=== PATIENT | female | born 1985 | race Caucasian/White ===

== ENCOUNTER 2025-02-27 16:13 | Emergency (ER) | payer OTHER, SELFPAY ==
[2025-02-27 16:17] VITALS: BP 144/103
[2025-02-27 16:45] LABS: Urine Character Clear (Clear)
[2025-02-27 17:02] LABS: Urine Red Blood Cell 0-2 /HPF (0-2); Urine Squamous Cell >30 /LPF (Few)
[2025-02-27 18:35] VITALS: BMI 46.0
[2025-02-27 18:37] VITALS: BP 154/95
[2025-02-27 19:40] LABS: Hematocrit 38.6 % (37.0-47.0); Hemoglobin 13.3 g/dL (12.0-16.0); Mean Corp Hgb Conc. 34.5 g/dL (33.0-37.0); Mean Corpuscular Volume 87.3 fL (81.0-99.0); Nucleated Red Blood Cells % 0 %; Platelet Count 260 10^3/uL (130-400); Red Cell Dist. Width 12.6 % (11.5-14.5)
[2025-02-27 20:01] LABS: Blood Urea Nitrogen 9 mg/dl (7-17); Calcium 9.0 mg/dl (8.4-10.2); Carbon Dioxide 18 mmol/L (22-30); Chloride 109 mmol/L (98-107); Estimated Creatinine Clearance > 125 ml/min; Glucose 94 mg/dl (70-99); Sodium 139 mmol/L (135-145); eGFR > 60.00
[2025-02-27 21:10] VITALS: BP 152/105
--- NOTE | 2025-02-27 23:54 | ED.GENMED ---
History of Present Illness
General
Chief Complaint: Flank Pain
Source: patient
Exam Limitations: none
Time Seen by Provider: 02/27/25 18:11
Nursing documentation reviewed up to this point in time: agreed with
History of Present Illness
History of Present Illness:
Patient to ED [facility] complaint of bilateral flank pain. Symptoms started today. She states she was placed on Macrobid 3 days ago for UTI. UTI symptoms improved, now with flank pain. Denies fever/chills.
Past History
Past History
ED Past Medical History: Other (Pyelonephritis)
ED Past Surgical History: and Other (Adkins teeth)
Patient has exhibited threatening behavior?: No
Social History
Tobacco: Non-smoker
Alcohol: Occasional
Drug: None
Personal:
Living: with family
Employment: Employed
Review of Systems
Review of Systems
Allergies reviewed?: Yes
All Other Systems: ROS reviewed and negative except as documented in HPI and ROS
Constitutional: Reports no symptoms
EENT: Reports no symptoms
Respiratory: Reports no symptoms
Cardiac: Reports no symptoms
ABD/GI: Reports no symptoms
: Reports flank pain (bilateral)
Musculoskeletal: Reports no symptoms
Skin: Reports no symptoms
Neurological: Reports no symptoms
Psychiatric: Reports no symptoms
Phy Exam
General Physical Exam
General Presentation: well appearing and no apparent distress
General age: appears stated age
General Skin: warm and dry
General Habitus: normal
General Mental: alert
Cardiovascular Exam
Cardiovascular Exam: regular rate/rhythm and no edema
Gastrointestinal Exam
Gastrointestinal Exam: normal bowel sounds, non tender, soft, no organomegaly, non distended and no cva tenderness
Musculoskeletal Exam
Musculoskeletal Exam: neuro vasc intact and other (bilateral middle back pain. Pain is reproducible.)
Skin Exam
Skin Exam: normal color, warm/dry and no rash
Psychiatric Exam
Psychiatric Exam: normal mood/affect
Course
Orders/Labs/Results
Orders:
Orders
02/27/25 16:27
Urine Culture Reflexed from UA [Urinalysis Reflex To Culture] Urgent
Date Specimen was Collected: 02/27/25
Time Specimen was Collected: 16:17
Urine Microscopic Reflex Cult Urgent
02/27/25 19:00
CT Abd/pel Without Iv Or Oral Urgent
Comment:
Reason For Exam: flank pain
02/27/25 19:09
Basic Metabolic Panel Urgent
Complete Blood Count/With Diff Urgent
Abnormal Lab Results
02/27/25 02/27/25
16:27 19:09
WBC 10.9 H 10^3/uL
(4.8-10.8)
Absolute Neuts (auto) 8.1 H 10^3/uL
(1.4-6.5)
Lymphocytes % 18.8 L %
(20.5-51.1)
Chloride 109 H mmol/L
(98-107)
Carbon Dioxide 18 L mmol/L
(22-30)
Ur Occult Blood Reflex 1+ A
(Negative)
Urine Bacteria (Reflex) Few A
(Negative)
02/27/25 19:09
02/27/25 19:09
Vital Signs
Initial and Last Documented VS:
Initial Vital Signs
Temp Pulse Resp BP Pulse Ox
98.4 F 89 16 144/103 100
02/27/25 16:17 02/27/25 16:17 02/27/25 16:17 02/27/25 16:17 02/27/25 16:17
Last Documented Vital Signs
Temp Pulse Resp BP Pulse Ox
98.4 F 63 18 152/105 99
02/27/25 16:17 02/27/25 21:10 02/27/25 21:10 02/27/25 21:10 02/27/25 21:10
*Pulse Oximetry
SaO2: 99
Oxygen Mode of Delivery: Room air
Patient hypoxic: no
*Critical Care Note
Total Time (30-74mins, 75-104mins- exclusive of procedures): Not Applicable
Update Note
Update Note:
Patient t ED wtih bilateral middle back pain since this AM. SHe is concerned for kidney infection as she is currently being treated for UTI. VSS, she remains afebrile. UA neg for UTI. Back pain is reproducible. CT neg for acute findings. Labs
reviewed, Kidney fucntion WNL. Will dishcarge home, close follow up with PCP. Given instructions on s/s to return to ED and she is agreeable to plan.
ED Attending Note
-
Portions of this chart may have been created with voice recognition software.� Occasional wrong word or��sound alike� substitutions may have occurred due to the inherent limitations of voice recognition software.
Discharge Plan
Departure
Patient Disposition: Home (Routine Discharge)
Date of Disposition: 02/27/25
Time of Disposition: 20:52
Patient with high blood pressure during this ER visit?: No
Condition: Good
Covid-19: Not Applicable
Discharge Problem:
Flank pain
Instructions: Cold therapy for pain, Ibuprofen, Musculoskeletal Pain
Prescriptions:
No Action
norgestimate-ethinyl estradiol [Carrie] 0.25-35 mg-mcg tablet
1 tab PO DAILY
aspirin 325 mg Tablet,Delayed Release (Dr/Ec)
650 mg PO DAILY PRN (Reason: headache)
Referrals:
Josette Henry MD [Family Provider, Internal Medicine] - Follow up in 2-3 days
Interventions
Interventions:
*Risk Screen - Suicide Last Done: 02/27/25 16:17
*General Assessment Last Done: 02/27/25 16:17
*Neglect/Abuse Screening Last Done: 02/27/25 16:17
*ED- Fall Risk Assessment Last Done: 02/27/25 16:17
*ED COVID-19 Vaccine History Last Done: 02/27/25 16:17
*Nursing Disposition Last Done: 02/27/25 21:12
HA-Pjcsfq-Hbllgtvfad Assessment Last Done: 02/27/25 18:35
ED-Female Genitourinary Assessment Last Done: 02/27/25 18:35
Discharge Date and Time
Discharge Date/Time: 02/27/25 21:13
Print Language: LATVIAN
== END 2025-02-27 21:13 | disposition home or self-care (01) ==
LOC: EMR 16:13
PROVIDERS: Emergency Medicine; EMERGENCY PHYSICIAN Emergency Medicine; FAMILY PHYSICIAN Internal Medicine
DX: R10.9 Unspecified abdominal pain (principal); M54.9 Dorsalgia, unspecified
CPT/HCPCS: 99284; 74176; 80048; 81003; 81015; 85025